=== PATIENT | female | born 1965 | race Caucasian/White ===

== ENCOUNTER 2018-05-17 16:39 | Emergency (ER) | payer OTHER ==
[~2018-05-17] VITALS: Ht 172.7 cm; Wt 90.7 kg
--- OUTSIDE RECORDS SUMMARY | ~2018-05-17 | XMS | Clinical Summary ---
Demographics + + + | Address | [address] | | | [place] [address] | + + + | Home Phone | | + + + | Preferred Language | Unknown | + + + | Marital Status | | + + + | Confucianist Affiliation | Unknown | + + + | Race | Unknown | + + + | Ethnic Group | Unknown | + + + Author + + + | Author | [facility] | + + + | Organization | [facility] | + + + | Address | Unknown | + + + | Phone | Unavailable | + + + Support + + +---------+ + | Name | Relationship | Address | Phone | + + +---------+ + | Radha Campbell | ECON | Unknown | | + + +---------+ + Care Team Providers + +------+ + | Care Wood Flooring Specialist Name | Role | Phone | + +------+ + | Edy Rodriguez MD | PP | | + +------+ + Allergies Not on File Current Medications Not on file Active Problems Not on file Social History + +-------+ +--------+------+ | Tobacco Use | Types | Packs/Day | Years | Date | | | | | Used | | + +-------+ +--------+------+ | Never Assessed | | | | | + +-------+ +--------+------+ + + + | Sex Assigned at | Date Recorded | | | | + + + | Not on file | | + + + Plan of Treatment Not on file Results Not on filefrom Last 3 Months"
--- OUTSIDE RECORDS SUMMARY | ~2018-05-17 | XMS | Clinical Summary ---
Demographics + + + | Address | [address] | | | [place] [address] | + + + | Home Phone | | + + + | Preferred Language | Unknown | + + + | Marital Status | | + + + | Caodaism Affiliation | Unknown | + + + | Race | Unknown | + + + | Ethnic Group | Unknown | + + + Author + + + | Author | [facility] | + + + | Organization | [facility] | + + + | Address | Unknown | + + + | Phone | Unavailable | + + + Support + + +---------+ + | Name | Relationship | Address | Phone | + + +---------+ + | Radha Campbell | ECON | Unknown | | + + +---------+ + Care Team Providers + +------+ + | Care Assistant Signal Maintainer Name | Role | Phone | + [...]
[~2018-05-17 16:39] MED LIST: ALPRAZOLAM XR1 MG PO; ALPRAZOLAM1 MG PO; AMBIEN10 MG; AUGMENTIN 875-1 EACH PO; BUPROPION HCL100 MG PO; CELEXA40 MG PO; CIPROFLOXACIN500 MG PO; DISULFIRAM500 MG PO; GABAPENTIN100 MG PO; IBUPROFEN200 MG PO; IBUPROFEN800 MG PO; LEVSIN-SL0.125 MG SL; METRONIDAZOLE250 MG PO; MINIVELLE1 EAC1 TD; MOTRIN IB200 MG PO; ONDANSETRON ODT4 MG SL; OXYCODON-ACETA1 EAC2 PO; PANTOPRAZOLE SO40 MG PO; PROGESTERONE100 MG PO; PROTONIX40 MG PO; TRAZODONE HCL50 MG PO; TYLENOL325 MG PO; XANAX0.5 MG PO
== END 2018-05-17 21:30 | disposition home or self-care (01) ==
LOC: ED 16:39
DX: R10.11 Right upper quadrant pain (principal); Z79.899 Other long term (current) drug therapy
CPT/HCPCS: 74177; 80053; 81001; 83690; 84703; 85025; 96374; 99284; J1885; Q9967